=== PATIENT | male | born 1930 | race Hispanic/Latino ===

== ENCOUNTER 2018-01-01 08:33 | Outpatient (CLI) | payer MEDICARE, OTHER ==
--- NOTE | 2018-01-01 09:48 | XRay Report ---
XRAY LEFT KNEE 4 THREE VIEWS: 01/01/18 CLINICAL: Left knee pain. FINDINGS: Moderate osteopenia. 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 There is deformity in widening of the medial joint space. Patellofemoral joint osteoarthritis with osteophytes and narrowing of the joint space.Suspect a small knee joint effusion.Vascular calcifications. No fracture or dislocation. IMPRESSION: Osteoarthritis with greater involvement of the lateral joint space.
== END 2018-01-01 08:34 | disposition home or self-care (01) ==
LOC: SPVIMAG 08:33
PROVIDERS: ATTEND Orthopaedic Surgery Sports Medicine
DX: M17.12 Unilateral primary osteoarthritis, left knee (principal); Z96.651 Presence of right artificial knee joint